=== PATIENT | female | born 1995 | race Caucasian/White ===

== ENCOUNTER 2016-09-01 01:06 | Emergency (ER) | payer OTHER ==
[~2016-09-01] VITALS: Ht 177.8 cm; Wt 80.0 kg
[~2016-09-01 01:06] MED LIST: Z.0.NO CURRENT MEDS
[2016-09-01 01:10] VITALS: BP 128/83; PULSE 68; RESP 15; TEMP 98.2; O2SAT 100; O2SAT 68
[2016-09-01] MEDS ORDERED: MULT-120 PO (02:13)
[2016-09-01 02:15] VITALS: BP 110/71; PULSE 69; RESP 18; O2SAT 100
[2016-09-01] MEDS ORDERED: SODIUM CHLORIDE 0.9% FLUSH 5 ML FLUSH IVF PRN (02:15)
[2016-09-01 02:40] LABS: AUTOMATED NEUTROPHIL # 7.4 TH/MM3 (1.8-7.7); BASOPHIL % 0.2 % (0.0-2.0); EOSINOPHIL # 0.1 TH/MM3 (0-0.4); EOSINOPHIL % 1.1 % (0.0-4.0); HEMATOCRIT 40.9 % (35.0-46.0); HEMO FLAGS DIFF FINAL; LYMPH % 21.9 % (9.0-44.0); LYMPHOCYTE # 2.4 TH/MM3 (1.0-4.8); MEAN CELL VOLUME 87.4 FL (80.0-100.0); MEAN CORPUSCULAR HGB CONC 34.3 % (32.0-36.0); MONO % 8.3 % (0.0-8.0); NEUT % 68.5 % (16.0-70.0); PLATELET COUNT 286 TH/MM3 (150-450); RED BLOOD COUNT 4.68 MIL/MM3 (4.00-5.30); RED CELL DISTRIBUTION WIDTH 12.7 % (11.6-17.2); WHITE BLOOD COUNT 10.9 TH/MM3 (4.0-11.0)
[2016-09-01 02:59] LABS: BICARBONATE 25.1 MEQ/L (21.0-32.0); MAGNESIUM 2.2 MG/DL (1.5-2.5); POTASSIUM 3.8 MEQ/L (3.5-5.1)
--- NOTE | 2016-09-01 03:05 | PD ---
HPI Chief Complaint: Cardiac Complaint Time Seen by Provider: 02:14 Travel History International Travel<30 days: No Contact w/Intl Traveler<30days: No Traveled to known affect area: No History of Present Illness HPI 21-year-old female here with complaint of palpitations. Patient has had intermittent palpitations over the course the last day. History of same but this seems more long-standing. No pain, shortness of breath, lightheadedness or nausea or vomiting. No family history of prolonged QT, WPW, Brugada. Patient drinks one cup of coffee daily, but otherwise does not abuse stimulants. Patient gets plenty of sleep but does note that she is stressed, currently in the [employer]. Patient is asymptomatic at this time. [facility] Past Medical History Blood Disorders: No Anxiety: No Depression: No Cardiovascular Problems: No Developmental Delay: No Diminished Hearing: No Genitourinary: No Headaches: No Musculoskeletal: No Neurologic: No Psychiatric: No Respiratory: Yes Immunizations Current: Yes Seizures: No Tetanus Vaccination: Unknown Influenza Vaccination: Yes ?: Not LMP: 08/08/2015 Ovarian Cysts: Yes Past Surgical History Abdominal Surgery: No Appendectomy: Yes Cardiac Surgery: No Ear Surgery: No Eye Surgery: No Genitourinary Surgery: No Gynecologic Surgery: No Neurologic Surgery: No Oral Surgery: No Thoracic Surgery: No Tonsillectomy: Yes Other Surgery: Yes (TONSILS 11/03) Social History Alcohol Use: No Tobacco Use: No Substance Use: No Allergies-Medications (Allergen,Severity, Reaction): Coded Allergies: No Known Allergies (Unverified , 09/01/16) Reported Meds & Prescriptions Reported Meds & Active Scripts Active Reported Multivitamin Women (Multiple Vitamins W/ Minerals) 1 Tab Tab 1 Tab PO DAILY Review of Systems Except as stated in HPI: all other systems reviewed are Neg Physical Exam Narrative GENERAL: Well-appearing female in no acute distress SKIN: Warm and dry. HEAD: Normocephalic. EYES: No scleral icterus. No injection or drainage. ENT: Mucous membranes pink and moist. NECK: Supple CARDIOVASCULAR: Regular rate and rhythm. No murmur appreciated. PACs noted on monitor RESPIRATORY: No accessory muscle use. Clear to auscultation. Breath sounds equal bilaterally. GASTROINTESTINAL: Abdomen soft, non-tender, nondistended. MUSCULOSKELETAL: Normal gait NEUROLOGICAL: Awake and alert. Normal speech. PSYCHIATRIC: Appropriate mood and affect; insight and judgment normal. Data Data Last Documented VS Vital Signs Date Time Temp Pulse Resp B/P Pulse Ox O2 Delivery O2 Flow Rate FiO2 09/01/16 02:15 100 Room Air 09/01/16 02:15 69 18 110/71 09/01/16 01:10 98.2 Orders Electrocardiogram (09/01/16 01:14) Basic Metabolic Panel (Bmp) (09/01/16 02:14) Complete Blood Count With Diff (09/01/16 02:14) Magnesium (Mg) (09/01/16 02:14) Ecg Monitoring (09/01/16 02:14) Iv Access Insert/Monitor (09/01/16 02:14) Oximetry (09/01/16 02:14) Sodium Chloride 0.9% Flush (Ns Flush) (09/01/16 02:15) Ed Urine Pregnancytest Poc (09/01/16 02:14) Labs Laboratory Tests Test 09/01/16 02:30 White Blood Count 10.9 TH/MM3 Red Blood Count 4.68 MIL/MM3 Hemoglobin 14.0 GM/DL Hematocrit 40.9 % Mean Corpuscular Volume 87.4 FL Mean Corpuscular Hemoglobin 30.0 PG Mean Corpuscular Hemoglobin 34.3 % Concent Red Cell Distribution Width 12.7 % Platelet Count 286 TH/MM3 Mean Platelet Volume 7.5 FL Neutrophils (%) (Auto) 68.5 % Lymphocytes (%) (Auto) 21.9 % Monocytes (%) (Auto) 8.3 % Eosinophils (%) (Auto) 1.1 % Basophils (%) (Auto) 0.2 % Neutrophils # (Auto) 7.4 TH/MM3 Lymphocytes # (Auto) 2.4 TH/MM3 Monocytes # (Auto) 0.9 TH/MM3 Eosinophils # (Auto) 0.1 TH/MM3 Basophils # (Auto) 0.0 TH/MM3 CBC Comment DIFF FINAL Differential Comment Sodium Level 141 MEQ/L Potassium Level 3.8 MEQ/L Chloride Level 109 MEQ/L Carbon Dioxide Level 25.1 MEQ/L Anion Gap 7 MEQ/L Blood Urea Nitrogen 16 MG/DL Creatinine 0.94 MG/DL Estimat Glomerular Filtration 74 ML/MIN Rate Random Glucose 96 MG/DL Calcium Level 8.7 MG/DL Magnesium Level 2.2 MG/DL MDM Medical Decision Making Medical Screen Exam Complete: Yes Emergency Medical Condition: Yes Medical Record Reviewed: Yes Differential Diagnosis 21-year-old female here with complaint of palpitations. Differential includes arrhythmia, electrolyte abnormality, thyroid abnormality. Narrative Course Patient placed on monitor, IV established and blood obtained. Twelve-lead EKG shows sinus rhythm without notable ST or T-wave abnormalities and normal intervals. No evidence of prolonged QT, WPW, Brugada. Urine test was negative. CBC, BMP, magnesium obtained and unremarkable. Patient occasionally has PACs on the monitor but is asymptomatic at this time. She was reassured and discharged home. Diagnosis Primary Impression: Palpitations Additional Impression: PAC (premature atrial contraction) Referrals: Primary Care Physician as needed Med/Other Pt SpecificInfo: No Change to Meds Disposition: 01 DISCHARGE HOME Condition: Stable Isabel Lunsford MD Sep 01, 2016 03:05
--- NOTE | 2016-09-02 11:53 | EKG ---
Date Performed: 09/01/2016 Time Performed: 01:19:35 PTAGE: 21 years EKG: Sinus rhythm NORMAL ECG NO PREVIOUS TRACING DOCTOR: Cristobal Nevarez Interpretating Date/Time 09/02/2016 11:52:07
== END 2016-09-01 03:20 | disposition home or self-care (01) ==
LOC: NEPE 01:06
DX: I49.1 Atrial premature depolarization (principal)
CPT/HCPCS: 80048; 83735; 84703; 85025; 93005